=== PATIENT | male | born 1945 | race Caucasian/White ===

== ENCOUNTER 2018-09-12 10:42 | Inpatient (IN) | payer MEDICARE ==
[~2018-09-12] VITALS: Ht 177.8 cm; Wt 75.8 kg
[2018-09-12] VITALS (17 sets, daily range): BP systolic 117–179; BP diastolic 60–110
--- NOTE | 2018-09-12 10:42 | NUR ---
HOOP MACHINE OPERATOR TEAM IN TRIAGE SPEAKING WITH DR. BOYD REGARDING EKG
--- NOTE | 2018-09-12 10:46 | NUR ---
MOTOR VEHICLE TECHNICIAN ACTIVATED
[2018-09-12] MEDS ORDERED: CLOPIDOGREL BISULFATE 75 MG TAB ONE (10:53)
[2018-09-12] MEDS ORDERED: ASPIRIN 81 MG CHEW TAB ONE (10:53)
[2018-09-12] MEDS ORDERED: LIDOCAINE HCL 2% LOCAL 20 ML VIAL ONE (10:55)
[2018-09-12] MEDS ORDERED: MIDAZOLAM HCL 2 MG/2 ML VIAL ONE (10:55)
[2018-09-12] MEDS ORDERED: SODIUM CHLORIDE 0.9% 1000ML 1,000 ML IV STA (10:55)
[2018-09-12] MEDS ORDERED: FENTANYL CITRATE/PF 100MCG/2 ML INJ ONE (10:55)
[2018-09-12] MEDS ORDERED: HEPARIN SOD/SOD CHLORIDE 2,000 ML ONE (10:56)
[2018-09-12] MEDS ORDERED: IOPAMIDOL 370 MG/ML 200 ML INFUS..BTL INJ ONE ×3 (10:56→11:47)
[2018-09-12] MEDS ORDERED: SODIUM CHLORIDE 0.9% 1000ML 1,000 ML ONE ×2 (10:56→11:05)
[2018-09-12] MEDS ORDERED: BIVALRIUDIN 250 MG/VIAL VIAL IV ONE (11:00)
[2018-09-12] MEDS ORDERED: EPTIFIBATIDE 75mg 100ML 100 ML ONE (11:00)
[2018-09-12] MEDS ORDERED: CLOPIDOGREL BISULFATE 75 MG TAB PO ONE (11:00)
[2018-09-12] MEDS ORDERED: ASPIRIN 81 MG CHEW TAB PO ONE (11:00)
[2018-09-12] MEDS ORDERED: EPTIFIBATIDE 20 ML ONE (11:00)
[2018-09-12] MEDS ORDERED: SODIUM CHLORIDE 0.9% 50ML 50 ML ONE (11:01)
[2018-09-12] MEDS ORDERED: HYDRALAZINE HCL 20 MG/ML VIAL IV STA (11:03)
[2018-09-12] MEDS ORDERED: HYDRALAZINE HCL 20 MG/ML VIAL ONE (11:05)
--- NOTE | 2018-09-12 11:07 | NUR ---
DR. BOYD AT BEDSIDE GIVING PATIENT RISK AND BENEFITS FOR CONSENT. PATIENT VERBALIZED UNDERSTANDING AND CONSENT SIGNED WITH SENIOR ORACLE APPLICATIONS DEVELOPER PRESENT
--- NOTE | 2018-09-12 11:10 | NUR ---
PER PATIENT REQUEST. PATIENTS FRIEND TARUN CRESCENCIO GIVEN HIS PHONE, AND CLOTHING REMOVED IN PREPARATION FOR COMPLIANCE ADVISOR
--- NOTE | 2018-09-12 11:11 | NUR ---
DR. Lucy WALTERS AT BEDSIDE SPEAKING WITH PATIENT, PATIENT TAKEN TO PRODUCTION TRAINER
[2018-09-12 11:14] LABS: BASOPHILS # (AUTO) 0.1 (0.0-0.1); BASOPHILS % 0.6 % (0.0-1.0); EOSINOPHILS # (AUTO) 0.1 (0.0-0.4); EOSINOPHILS % 1.7 % (0.0-6.0); HEMATOCRIT 49.6 % (38.2-49.6); LYMPHOCYTES # (AUTO) 1.9 (1.0-3.2); LYMPHOCYTES % 22.3 % (18.0-39.1); MEAN CORPUSCULAR HEMOGLOBIN 28.4 pg (28-32); MEAN CORPUSCULAR HGB CONC 32.3 g/dL (31-35); MEAN CORPUSCULAR VOLUME 87.9 fL (81-99); MONOCYTES # (AUTO) 0.8 (0.2-0.8); MONOCYTES % 9.1 % (4.4-11.3); NEUTROPHILS # (AUTO) 5.5 (2.1-6.9); NEUTROPHILS % 65.8 % (38.7-80.0); PLATELET COUNT 251 x10e3/uL (140-360); RED BLOOD COUNT 5.64 x10e6/uL (4.3-5.7); RED CELL DISTRIBUTION WIDTH 12.5 % (11.7-14.4)
[2018-09-12] MEDS ORDERED: EPTIFIBATIDE 2 MG/1 ML 10ML VIAL IV ONE (11:15)
[2018-09-12 11:22] LABS: INR 0.93
[2018-09-12 11:23] LABS: PARTIAL THROMBOPLASTIN TIME 29.7 seconds (23.8-35.5)
[2018-09-12 11:33] LABS: ALBUMIN 4.3 g/dL (3.5-5.0); ALBUMIN/GLOBULIN RATIO 1.2 (0.8-2.0); ANION GAP 14.6 mmol/L (8-16); CREATININE, SERUM 1.69 mg/dL (0.72-1.25); POTASSIUM 3.6 mmol/L (3.5-5.1)
[2018-09-12] MEDS ORDERED: ATROPINE SULFATE 0.1 MG/ML 10ML SYR ONE (11:34)
[2018-09-12 11:42] LABS: CREATINE KINASE MB 2.9 ng/mL (0-5.0)
--- NOTE | 2018-09-12 11:50 | Diagnostic Imaging Report ---
EXAM: CHEST SINGLE (PORTABLE), AP Portable DATE: 09/12/2018 Time stamp on exam: 11:00 AM INDICATION: Chest pain COMPARISON: None Patient is significantly rotated in the FRISIAN position. FINDINGS: LINES/TUBES: None LUNGS: No consolidations or edema. PLEURA: No effusions or pneumothorax. HEART AND MEDIASTINUM: Normal size and contour. Aortic tortuosity. BONES AND SOFT TISSUES: No acute findings. Degenerative changes of the spine. IMPRESSION: No acute thoracic abnormality. Signed by: Dr. Darius Joseph DO on 09/12/2018 11:46 AM
[2018-09-12] MEDS ORDERED: METOCLOPRAMIDE HCL 10 MG/2ML VIAL ONE (11:56)
--- OUTSIDE RECORDS SUMMARY | 2018-09-12 12:16 | XMS REPORT ---
[facility] Address Unknown Phone Unavailable Care Team Providers Care Motor Coach Driver Name Role Phone Ruiz BOYD Unavailable Unavailable Problems This patient has no known problems. Allergies, Adverse Reactions, Alerts This patient has no known allergies or adverse reactions. Medications This patient has no known medications. Results Test Description Test Time Test Comments Text Results Atomic Results Result Comments CHEST SINGLE (PORTABLE) 2018-09-12 11:45:00 [facility] [address] [place] [address] Patient Name: JERILYN LOMBARDO MR #: [id number] : 1945 Age/Sex: 72/M Req #: [id number] Adm Physician: Ordered by: CANDICE BOYD MD Report #: [id number] Location: ER Room/Bed: Procedure: [id number] DX/CHEST SINGLE (PORTABLE) Exam Date: 09/12/18 Exam Time: 1050 REPORT STATUS: Signed EXAM: CHEST SINGLE (PORTABLE), AP Portable DATE: Time stamp on exam: 11:00 AM INDICATION: Chest pain COMPARISON: None Patient is significantly rotated in the [place] position. FINDINGS: LINES/TUBES: None LUNGS: No consolidations or edema. PLEURA: No effusions or pneumothorax. HEART AND MEDIASTINUM: Normal size and contour. Aortic tortuosity. BONES AND SOFT TISSUES: No acute findings. Degenerative changes of the spine. IMPRESSION: No acute thoracic abnormality. Signed by: Dr. Ady Joseph DO on 09/12/2018 11:46 AM Dictated By: ADY JOSEPH DO 1146 Transcribed By: KALEB on 09/12/18 1146 COPY TO: CANDICE BOYD MD
[2018-09-12] MEDS ORDERED: MORPHINE SULFATE 2 MG/ML SYR 1ML IV PRN (12:30)
[2018-09-12] MEDS: FAMOTIDINE 20 MG TAB PO SCH ×2 (12:30→15:00)
[2018-09-12] MEDS ORDERED: NITROGLYCERIN 0.4 MG SUBL SL PRN (12:30)
[2018-09-12] MEDS ORDERED: ONDANSETRON HCL INJ 2MG/ML 2ML 2 MG/ML VIAL IV PRN (12:30)
[2018-09-12] MEDS ORDERED: MORPHINE SULFATE INJ 4 MG/ML INJ 1ML IV PRN (13:00)
[2018-09-12] MEDS: SODIUM CHLORIDE 0.9% 1000ML 1,000 ML IV SCH ×2 (13:00→13:45)
--- NOTE | 2018-09-12 13:00 | NUR ---
Patient arrived to ICU at 12:[address] Ortiz came to bedside. Dr. Esparza notified of patients arrival to the unit.
[2018-09-12] MEDS ORDERED: PRASUGREL 10 MG TAB PO ONE (13:15)
--- NOTE | 2018-09-12 14:02 | Operative Report ---
DATE OF PROCEDURE: 09/12/2018 SURGEON: Silvia Glover MD PROCEDURES PERFORMED: 1. Left heart cardiac catheterization, coronary angiography. 2. Aortic arch angiography. 3. Primary PCI of the culprit mid to distal RCA lesion. 4. Angio-Seal closure of the right common femoral arteriotomy. INDICATION FOR PROCEDURE: A 72-year-old gentleman with minimal past medical history, who is thought to be otherwise healthy, comes into this institution with severe 10/10 chest pressure and tightness with discomfort escalating over the past two weeks. The patient was found to have acute inferior ST-elevation myocardial infarction. The patient was noted to be significantly hypertensive, compatible with cardiogenic shock. He had to be supported with inotrope therapy. He was brought to the cardiac catheterization laboratory emergently. DESCRIPTION OF PROCEDURE: The patient was brought to the cardiac catheterization laboratory in an emergent fashion and the right groin was prepped and draped in usual sterile fashion. A 1% lidocaine solution was used on the right groin region and access to right femoral artery was obtained and a short 4-Palestinian femoral sheath was placed. Initially, we went with a 4-Palestinian JL4 diagnostic catheter, however, noting the course of the wire, there were twists and bends in the thoracoabdominal aorta region initially concerning for significant thoracoabdominal aortic aneurysm. We were able to fit the JL4 diagnostic catheter in the left main coronary artery and performed left coronary angiography. Next, utilizing an exchange J wire, we went ahead, decided to go ahead up front, exchanged for a 6-Palestinian 45 cm Destination sheath to at least bypass the tortuousities in the abdominal, aortic, and femoral region. At that point in time, the patient was given Angiomax bolus for systemic anticoagulation and was initially given Integrilin boluses and has been on a drip from the ER coming into the manager labor delivery. We took a 6-Palestinian 3DRC guiding catheter and selected the right coronary ostia. This revealed 100% thrombotic occlusion in the mid to distal RCA. We quickly took 180 cm Prowater Flex guidewire and successfully crossed into the right PLV branch. Next, we pre-dilated the lesion with a [employer] Emerge 2.0 x 20 mm balloon up to 10 atmospheres of pressure. This opened up the artery and improved flow from THOMAS 0 to THOMAS-1. This revealed long thrombotic segment in the RCA and we decided to proceed with the implantation of a very long stent to trap it. We then took a Resolute Ava 2.25 x 38 mm drug-eluting stent going from the right PLV branch all the way back down to the distal RCA. This was inflated up to 20 atmospheres of pressure. Next, we looked at the proximal end of the stent and noted that there was a significant lesion at 70% just proximal to the stent and we were concerned for future in-segment restenosis. We decided to implant a Resolute David 2.75 x 22 mm drug-eluting stent overlapping this stented segment and this was deployed up to 15 atmospheres of pressure. We advanced the stent balloon and hit the overlap segment up to 15 atmospheres of pressure. Final angiography revealed 0% residual stenosis in the treated segment and improvement of flow from THOMAS 0 to THOMAS-2 and no complications. He was maintained on dopamine drip at 5 mcg/kg per minute for shock physiology and had been given boluses of intravenous fluids to maintain his pressure for concomitant RV infarct. At the conclusion of case, we took an angled pigtail catheter and placed it in the aortic arch to evaluate what is going on and this revealed dilatation of the ascending and descending thoracoabdominal aorta with severe ectasia, however, no severe aneurysmal dilatation or dissection. At that point in time, we exchanged out for 6-Palestinian short femoral sheath and femoral angiogram revealing femoral artery segment and we successfully deployed a 6-Palestinian Angio-Seal closure device achieving hemostasis. The patient left the cardiac catheterization laboratory in improved condition, but still in critical shape as he is on fluids and dopamine to maintain his pressure and his pain had been improving at the conclusion of the case. COMPLICATIONS: None. ESTIMATED BLOOD LOSS: Minimal. FINDINGS: 1. Left main is angiographically normal, gives rise to an LAD and circumflex branch. 2. The LAD has a 40% proximal stenosis. It gives rise to a large first diagonal branch with 95% proximal stenosis. Remainder of this vessel and its branches have mild diffuse disease. 3. The circumflex artery terminates into a mid marginal branch and there is a 90% stenosis at the mid circumflex artery. 4. The RCA is dominant. It is ectatic proximally followed by 70% stenosis in the mid RCA and the distal RCA is 100% thrombotically occluded. INTERVENTION SUMMARY: Successful treatment of the tandem 70% mid followed by 100% thrombotic mid to distal RCA lesion with implantation of two overlapping stents, a Resolute David 2.75 x 22 followed by a Resolute Ava 2.25 x 38 mm drug-eluting stent resulting in 0% residual stenosis, improvement of flow to THOMAS-2 and no complications. This was achieved with a door to balloon time in 40 minutes. Aortic arch angiography revealed very tortuous ectatic ascending and descending thoracic aorta with twisting of the thoracoabdominal aorta going into the infrarenal abdominal aorta. The whole aorta was ectatic and tortuous. PLAN/RECOMMENDATIONS: 1. Aspirin and Effient therapy. 2. Integrilin infusion overnight. 3. ICU for further care and management. 4. Continue dopamine therapy for blood pressure support. 5. Aggressive risk factor modification medical therapy. 6. We will continue to follow this patient in the ICU. MD NEGIN Saeed/MCKAY /[id number]
[2018-09-12 14:32] LABS: CREATINE KINASE MB 279.3 ng/mL (0-5.0)
--- NOTE | 2018-09-12 16:00 | NUR ---
Dr. Glover's office paged to inform MD that patient is becoming hypertensive (see vital signs trend).
--- NOTE | 2018-09-12 16:07 | Consultation ---
DATE OF CONSULTATION: 09/12/2018 Cardiac Consultation REASON FOR CONSULTATION: Acute complicated inferior wall myocardial infarction. HISTORY: A 72-year-old gentleman "very healthy." He only gets one multivitamin a day, very active. For the last 2-3 weeks, he is having pressure tightness in his chest upon doing activity. He thought it is nothing serious. Today, he started having severe crushing chest pain radiating to his back, very severe. He came to the emergency room, inferior wall myocardial infarction diagnosed on EKG, urgent consultation for ST-elevation myocardial infarction was done. The patient seen in the emergency room initially and evaluated and he was taken to the geophysical laboratory chief. Subsequently, the patient seen also in the ICU, where we went over the medication. By summary, the patient came to the emergency room with acute inferior wall myocardial infarction with typical symptoms with two weeks' duration of angina-like symptoms. In the emergency room with severe chest pain, his blood pressure was high, he was given 10 mg hydralazine. His heart rate was in the 40s. He was taken to the geophysical laboratory chief, where he had urgent cardiac catheterization with successful PCI and stenting of totally occluded right coronary artery, presence of 90% circumflex disease and 90% diagonal disease. The patient also does have very very tortuous aorta. As we expected with inferior wall myocardial infarction and the fact the patient had hydralazine, he become hypotensive and we need to give him IV fluid bolus as well as to start him on small dose dopamine. The patient had successful reperfusion within 40 minutes door to balloon time. He is transferred to intensive care unit. In the intensive care unit, the patient seems to be quite stabilized. He is on dopamine 5 mcg/kg per minute. He is on Integrilin 2 mcg/kg per minute. He got bolus for more than a liter maybe 1.5 L. The patient is feeling better and his heart rate is back in normal sinus rhythm. His blood pressure is 130/80, his heart rate is 60, respiratory rate of 18, afebrile. REVIEW OF SYSTEMS: GENERAL: No fever, no chills. HEENT: No hay fever. PULMONARY: No cough. No hemoptysis. CARDIAC: As per acute illness. GI: No hematemesis. No melena. : No hematuria. No dysuria. MUSCULOSKELETAL: No aches. No pain. NEUROLOGICAL: No seizure activity. No localized deficit. HEMATOLOGY: No easy bruising or bleeding. ENDOCRINE: No diabetes mellitus. PHYSICAL EXAMINATION: GENERAL: Well-built gentleman, currently stable, initially was in distress. VITAL SIGNS: Blood pressure is currently 130/80, heart rate of 60, respiratory rate of 18. HEENT: Pupils are equal and reactive. NECK: No elevation of jugular venous pulsation. CHEST: Clear to auscultation and percussion. HEART: PMI 5th left intercostal space. Normal first and second heart sounds. ABDOMEN: Soft with good bowel sounds. EXTREMITIES: Right groin dressing in place. No hematoma. Good distal pulses. NEUROLOGIC: Awake, alert, oriented. LABORATORY DATA: As per chart. IMPRESSION: 1. Acute complicated inferior wall myocardial infarction. 2. Very tortuous aorta. 3. Elevation of BUN and creatinine at baseline. Creatinine is at 1.69. PLAN: Post DE care discussed with staff. We gave Effient 60 mg p.o. now on the fact the patient vomited after he took his Plavix in the geophysical laboratory chief. We will continue Integrilin to finish this bottle. Hopefully, by that time, the Effient will be working. We will refrain from beta-kennedy for the time being. We will check his lipid profile in the morning. Care discussed and explained to the patient and the family. Questions are answered. MD CARLY Stewart/MCKAY /[id number]
--- NOTE | 2018-09-12 17:16 | NUR ---
Dr. Glover's first page went unanswered, was paged again with no response. Patient's BP is 197/109, and troponin trending up as well.
[2018-09-12] MEDS ORDERED: CLONIDINE HCL 0.1 MG TAB PO PRN (17:30)
--- NOTE | 2018-09-12 17:30 | NUR ---
Dr. Richardson paged back regarding patients HTN, orders given for PRN clonidine.
[2018-09-12 23:20] LABS: CREATINE KINASE MB 162.4 ng/mL (0-5.0)
--- NOTE | 2018-09-12 23:55 | NUR ---
Dr. Glover notified of increased troponin of 113 post phlebotomy lab assistant. also notified of bradycardia. No new orders received.
[2018-09-13] VITALS (18 sets, daily range): BP systolic 104–154; BP diastolic 65–96
[2018-09-13 04:55] LABS: BASOPHILS % 0.2 % (0.0-1.0); EOSINOPHILS % 0.2 % (0.0-6.0); HEMATOCRIT 39.9 % (38.2-49.6); HEMOGLOBIN 13.6 g/dL (14.0-18.0); LYMPHOCYTES # (AUTO) 1.1 (1.0-3.2); LYMPHOCYTES % 9.6 % (18.0-39.1); MEAN CORPUSCULAR HEMOGLOBIN 29.4 pg (28-32); MEAN CORPUSCULAR HGB CONC 34.1 g/dL (31-35); MEAN CORPUSCULAR VOLUME 86.4 fL (81-99); MONOCYTES # (AUTO) 1.1 (0.2-0.8); MONOCYTES % 9.2 % (4.4-11.3); NEUTROPHILS # (AUTO) 9.5 (2.1-6.9); NEUTROPHILS % 80.3 % (38.7-80.0); PLATELET COUNT 188 x10e3/uL (140-360); RED BLOOD COUNT 4.62 x10e6/uL (4.3-5.7); RED CELL DISTRIBUTION WIDTH 13.1 % (11.7-14.4)
[2018-09-13 05:13] LABS: ALBUMIN 3.2 g/dL (3.5-5.0); ALBUMIN/GLOBULIN RATIO 1.1 (0.8-2.0); ANION GAP 11.6 mmol/L (8-16); CALCIUM 8.7 mg/dL (8.4-10.2); CREATININE, SERUM 1.27 mg/dL (0.72-1.25); POTASSIUM 3.6 mmol/L (3.5-5.1)
[2018-09-13 05:36] LABS: THYROID STIMULATING HORMONE 0.711 uIU/mL (0.350-4.940)
[2018-09-13 05:55] LABS: CREATINE KINASE MB 108.3 ng/mL (0-5.0)
[2018-09-13 06:02] LABS: CHOL/HDL RATIO 5.8 (3.9-4.7); MAGNESIUM 2.1 MG/DL (1.3-2.1)
[2018-09-13] MEDS: ASPIRIN 81 MG ENTERIC COATED PO SCH (08:30)
[2018-09-13] MEDS: PRASUGREL 10 MG TAB PO SCH (08:30)
[2018-09-13] MEDS ORDERED: CLOPIDOGREL BISULFATE 75 MG TAB PO SCH (09:00)
[2018-09-13] MEDS ORDERED: ONDANSETRON HCL 4 MG ORAL DISINTEGRATING TAB PO PRN (09:00)
--- NOTE | 2018-09-13 09:24 | NUR ---
Patient tolerated ambulating in the hallway with RN. Dr. Richardson at bedside, changed dressing to R groin incision. Orders given to transfer to medical surgical floor with telemetry.
[2018-09-13] MEDS: FAMOTIDINE 20 MG TAB PO SCH ×2 (11:43→23:59)
--- NOTE | 2018-09-13 12:10 | NUR ---
received report from juan in icu . awaiting for pt to arrive to floor
--- NOTE | 2018-09-13 13:35 | NUR ---
received pt to floor [id number]. pt is resting comfortably in bed, denies pain pt right groin area is dry and intact with steri strips in place no bruising noted. will continue care at this time side railsx2 bed wheels locked, call light is within easy reach instructed to call for assistance if needed
[2018-09-13] MEDS ORDERED: ATORVASTATIN 20 MG TAB PO SCH (21:00)
--- NOTE | 2018-09-13 21:10 | NUR ---
Assessment done.aaox3.ambulates.right groin dressing is dry.no pain voiced.no resp.distress.bed locked and in lowest position.phone and call light within reach.instructed to call for assistance as needed.keep monitor the pt.
[2018-09-14] VITALS: BP 140/81
[2018-09-14 05:52] VITALS: BP 145/88
[2018-09-14 06:19] LABS: BASOPHILS % 0.3 % (0.0-1.0); EOSINOPHILS # (AUTO) 0.1 (0.0-0.4); EOSINOPHILS % 0.9 % (0.0-6.0); HEMATOCRIT 40.9 % (38.2-49.6); HEMOGLOBIN 13.5 g/dL (14.0-18.0); LYMPHOCYTES # (AUTO) 1.5 (1.0-3.2); LYMPHOCYTES % 16.5 % (18.0-39.1); MONOCYTES % 11.6 % (4.4-11.3); NEUTROPHILS # (AUTO) 6.2 (2.1-6.9); NEUTROPHILS % 70.1 % (38.7-80.0); PLATELET COUNT 170 x10e3/uL (140-360); RED BLOOD COUNT 4.65 x10e6/uL (4.3-5.7); RED CELL DISTRIBUTION WIDTH 13.1 % (11.7-14.4)
[2018-09-14 06:36] LABS: ALBUMIN 3.3 g/dL (3.5-5.0); ALBUMIN/GLOBULIN RATIO 1.1 (0.8-2.0); ANION GAP 12.6 mmol/L (8-16); CALCIUM 8.9 mg/dL (8.4-10.2); CREATININE, SERUM 1.2 mg/dL (0.72-1.25); POTASSIUM 3.6 mmol/L (3.5-5.1)
--- NOTE | 2018-09-14 07:00 | NUR ---
Bed side report given to the oncoming rn.stable condition.
[2018-09-14 08:39] VITALS: BP 123/79
[2018-09-14] MEDS: ASPIRIN 81 MG ENTERIC COATED PO SCH (09:28)
[2018-09-14] MEDS: PRASUGREL 10 MG TAB PO SCH (09:28)
[2018-09-14 09:32] VITALS: BP 123/79
--- NOTE | 2018-09-14 09:35 | NUR ---
PT TOLERATED BREAKFAST, DENIES ANY PAIN, CALL LIGHT WITHIN REACH
[2018-09-14] MEDS ORDERED: LIPITOR20 MG PO (10:10)
[2018-09-14] MEDS ORDERED: EFFIENT10 MG PO (10:10)
[2018-09-14] MEDS ORDERED: ASPIRIN EC81 MG PO (10:10)
[2018-09-14] MEDS ORDERED: METOPROLOL SUCC25 MG PO (10:10)
--- NOTE | 2018-09-14 10:12 | NUR ---
MD Chrissie BLEVINS INTO SEE PT, DISCUSSED DISCHARGE INSTRUCTIONS WITH PT, PT VERBALIZED UNDERSTANDING, TELEPHONED MD LORENZO FOR DISCHARGE ORDER, AWAITING CALL BACK
--- NOTE | 2018-09-14 10:44 | NUR ---
IMM EXPLAINED TO PT, SIGNED BY PT AND PLACED ON CHART COPY GIVEN TO PT IN CARE TRANSITIONS FOLDER
--- NOTE | 2018-09-14 10:49 | NUR ---
SPOKE WITH MD LORENZO, DISCHARGE ORDERS RECEIVED, PT MADE AWARE
[2018-09-14] MEDS: FAMOTIDINE 20 MG TAB PO SCH (12:30)
--- NOTE | 2018-09-14 12:50 | NUR ---
DISCHARGE INSTRUCTIONS REVIEWED WITH PT, VERBALIZED UNDERSTANDING, PT REFUSED WC, AMBULATED OFF UNIT WITH PCT AT SIDE FOR DISCHARGE, NO CHANGE IN CONDITION
--- NOTE | 2018-09-15 08:26 | Discharge Summary ---
DISCHARGE DIAGNOSES: 1. Inferior wall myocardial infarction. 2. Coronary artery disease. 3. Hypertension. 4. Hyperlipidemia. HISTORY OF PRESENT ILLNESS AND HOSPITAL COURSE: The patient is a gentleman whose chest pain. He called the office, which I instructed him to go to the emergency room, where in the emergency room, he was noticed to be having an inferior wall W[place] with a STEMI, so he was then taken to the labels molder by Dr. Glover, who found 100% occlusion of the RCA, which was successfully stented. He did have other areas of coronary artery disease as well. He had an echo showing an EF of about 45%. He was put in ICU afterwards for post-intervention care. Postprocedure, the patient did great. He has no evidence of shortness of breath or chest pains. He is able ambulate well without the pain. He tolerated his medications well. He was instructed that he will have obvious stage intervention of the other coronary lesions in the next 2 to 6 weeks with Cardiology. At the time of discharge, he is feeling good. He will follow up with me in 1-2 weeks as well as with Dr. Glover. Please see discharge medications for discharge med list. Please see hospital chart for full details. MD CHEMA Costa/MCKAY /[id number]
== END 2018-09-14 12:54 | disposition home or self-care (01) | DRG 246 ==
LOC: ER 10:42 → CATH LAB 12:15 → ICU 13:03 → MED/SURG 09-13 13:20
PROVIDERS: ADMIT Internal Medicine; ATTEND Internal Medicine
PROC: 027035Z Dilation of Coronary Artery, One Artery with Two Drug-eluting Intraluminal Devices, Percutaneous Approach (ICD-10-PCS; principal; 2018-09-12)
PROC: B3101ZZ Fluoroscopy of Thoracic Aorta using Low Osmolar Contrast (ICD-10-PCS; 2018-09-12)
PROC: 4A023N7 Measurement of Cardiac Sampling and Pressure, Left Heart, Percutaneous Approach (ICD-10-PCS; 2018-09-12)
PROC: B2111ZZ Fluoroscopy of Multiple Coronary Arteries using Low Osmolar Contrast (ICD-10-PCS; 2018-09-12)
DX: I21.19 ST elevation (STEMI) myocardial infarction involving other coronary artery of inferior wall (principal); I50.21 Acute systolic (congestive) heart failure; I13.0 Hypertensive heart and chronic kidney disease with heart failure and stage 1 through stage 4 chronic kidney disease, or unspecified chronic kidney disease; Q25.46 Tortuous aortic arch; N18.3 Chronic kidney disease, stage 3 (moderate); Z88.0 Allergy status to penicillin; Z82.49 Family history of ischemic heart disease and other diseases of the circulatory system; E78.00 Pure hypercholesterolemia, unspecified; I95.9 Hypotension, unspecified; I21.A1 Myocardial infarction type 2
CPT/HCPCS: 36221; 36415; 71045; 80053; 80061; 82550; 82553; 82948; 83036; 83735; 83880; 84443; 84484; 85025; 85610; 85730; 92928; 93005; 93306; 93454; 99284; C1725; C1760; C1766; C1874; C1887; J0360; J0583; J1327; J2001; J2250; J2765; J3010; J7030; Q9967

== ENCOUNTER → 2021-02-03 | Day surgery (SDC) | payer MEDICARE ==
[2021-02-01 09:34] LABS: BASOPHILS % 0.6 % (0.0-1.0); EOSINOPHILS # (AUTO) 0.1 (0.0-0.4); EOSINOPHILS % 1.1 % (0.0-6.0); HEMATOCRIT 49.4 % (38.2-49.6); HEMOGLOBIN 16.1 g/dL (14.0-18.0); LYMPHOCYTES % 14.6 % (18.0-39.1); MEAN CORPUSCULAR HEMOGLOBIN 29.1 pg (28-32); MEAN CORPUSCULAR HGB CONC 32.6 g/dL (31-35); MEAN CORPUSCULAR VOLUME 89.3 fL (81-99); MONOCYTES # (AUTO) 0.6 (0.2-0.8); MONOCYTES % 8.9 % (4.4-11.3); NEUTROPHILS # (AUTO) 5.2 (2.1-6.9); NEUTROPHILS % 74.2 % (38.7-80.0); PLATELET COUNT 227 x10e3/uL (140-360); RED BLOOD COUNT 5.53 x10e6/uL (4.3-5.7); RED CELL DISTRIBUTION WIDTH 12.3 % (11.7-14.4)
[~2021-02-03] MED LIST: AMLODIPINE BESYL5 MG PO; ASPIRIN EC81 MG PO; CARVEDILOL12.5 MG PO; CLOPIDOGREL75 MG PO; EFFIENT10 MG PO; FENTANYL CITRATE/PF 100MCG/2 ML INJ ONE; LIPITOR20 MG PO; METOCLOPRAMIDE HCL 10 MG/2ML VIAL ONE; METOPROLOL SUCC25 MG PO; MIDAZOLAM HCL 2 MG/2 ML VIAL ONE; ONDANSETRON HCL INJ 2MG/ML 2ML 2 MG/ML VIAL ONE; POVIDONE IODINE 0.05% 0.05 % ML PO ONE; PROPOFOL IV EMULSION 10 MG/ML 50 ML VIAL IV ONE
[2021-02-03 10:05] VITALS: BP 96/64
== END | disposition home or self-care (01) ==
LOC: OR 09:24
PROVIDERS: ATTEND Internal Medicine Gastroenterology
DX: Z09 Encounter for follow-up examination after completed treatment for conditions other than malignant neoplasm (principal); K63.5 Polyp of colon; K57.30 Diverticulosis of large intestine without perforation or abscess without bleeding; K64.8 Other hemorrhoids; I25.10 Atherosclerotic heart disease of native coronary artery without angina pectoris; I25.2 Old myocardial infarction; I10 Essential (primary) hypertension; Z88.0 Allergy status to penicillin; Z01.812 Encounter for preprocedural laboratory examination; Z20.822 Contact with and (suspected) exposure to COVID-19; Z79.02 Long term (current) use of antithrombotics/antiplatelets; Z79.82 Long term (current) use of aspirin; Z68.25 Body mass index [BMI] 25.0-25.9, adult; Z85.828 Personal history of other malignant neoplasm of skin; Z95.5 Presence of coronary angioplasty implant and graft
CPT/HCPCS: 36415; 45385; 85025; 88305; J2250; J2405; J2704; J2765; J3010; U0002; 45378